=== PATIENT | female | born 1980 | race Hispanic/Latino ===

== ENCOUNTER 2022-02-01 09:00 | Inpatient (IN) | payer BC ==
[~2022-02-01] VITALS: Ht 152.4 cm; Wt 104.0 kg
[2022-02-01 11:20] LABS: BASOPHILS % (AUTO) 0.8 % (0.0-5.0); EOSINOPHILS % (AUTO) 1.4 % (0.0-8.0); HEMATOCRIT 37.8 % (36-48); LYMPHOCYTES % (AUTO) 24.6 % (21.0-51.0); MEAN CORPUSCULAR HEMOGLOBIN 23.2 pg (27.0-33.0); MEAN CORPUSCULAR HGB CONC 30.4 g/dL (32.0-36.0); MEAN CORPUSCULAR VOLUME 76.4 fL (79-99); NEUTROPHILS % (AUTO) 63.9 % (40.0-77.0); PLATELET COUNT (AUTO) 351 K/uL (130-400); RED BLOOD CELL COUNT(AUTO) 4.95 MIL/uL (4.00-5.50); RED CELL DISTRIBUTION WIDTH 16.5 % (11.0-15.5); WHITE BLOOD COUNT (AUTO) 7.2 K/uL (4.8-10.8)
[2022-02-01 11:27] LABS: CREATININE 0.6 mg/dL (0.5-1.5); POTASSIUM 3.5 mmol/L (3.5-5.1)
[2022-02-05 09:07] VITALS: BP 166/89
[2022-02-05] MEDS ORDERED: ALPR0.255 PO (10:19)
[2022-02-06] VITALS (31 sets, daily range): BP systolic 145–181; BP diastolic 74–111
[2022-02-06] MEDS ORDERED: CEFAZOLIN SODIUM 1 GM VIAL ONE (07:18)
[2022-02-06] MEDS ORDERED: LIDOCAINE PF 100MG/5ML (2%) SYRINGE 5ML ONE (07:27)
[2022-02-06] MEDS ORDERED: MIDAZOLAM HCL 1 MG/ML 2ML VIAL ONE ×2 (07:28→07:44)
[2022-02-06] MEDS ORDERED: ROCURONIUM 10MG/1ML SYR 10 MG/ML ML ONE (07:28)
[2022-02-06] MEDS ORDERED: FENTANYL CITRATE PF 50 MCG/1 ML 5ML AMP IV ONE (07:28)
[2022-02-06] MEDS ORDERED: PROPOFOL 10 MG/ML 20ML VIAL IV ONE ×2 (07:28→08:29)
[2022-02-06] MEDS ORDERED: MAGNESIUM SULFATE 1 GM/2 ML VIAL ONE (07:39)
[2022-02-06] MEDS ORDERED: KETAMINE 50MG/ML SYRINGE 50 MG/ML DISP.SYRIN IV ONE (07:39)
[2022-02-06] MEDS ORDERED: DEXMEDETOMIDINE HCL 200 MCG/2 ML VIAL IV ONE (07:39)
[2022-02-06] MEDS ORDERED: ONDANSETRON 4MG INJ ONE (07:46)
[2022-02-06] MEDS ORDERED: ACETAMINOPHEN 500 MG TABLET ONE (07:54)
[2022-02-06] MEDS ORDERED: LACTATED RINGERS 1000ML 1,000 ML IV SCH (08:00)
[2022-02-06] MEDS ORDERED: CEFAZOLIN SODIUM 3 GM in DEXTROSE 5%-WATER 100 ML IVP SCH (08:00)
[2022-02-06] MEDS ORDERED: DEXAMETHASONE SOD PHOSPHATE 10MG/ML 1ML VIAL ONE (08:28)
[2022-02-06] MEDS ORDERED: GLYCOPYRROLATE 1 MG/5 ML SYRINGE ONE (10:06)
[2022-02-06] MEDS ORDERED: NEOSTIGMINE 5MG/5ML SYR IV ONE (10:06)
[2022-02-06] MEDS ORDERED: MEPERIDINE-PF 25 MG/ML SYG ONE ×3 (10:14→11:00)
[2022-02-06] MEDS ORDERED: MEPERIDINE-PF 75 MG/ML SYG IM PRN (11:00)
[2022-02-06] MEDS ORDERED: BISACODYL 10 MG SUPP.RECT RC PRN (11:00)
[2022-02-06] MEDS ORDERED: PROMETHAZINE HCL 25 MG/ML 1ML AMPULE IM PRN (11:00)
[2022-02-06] MEDS ORDERED: ACETAMINOPHEN WITH CODEINE 1 TAB TAB PO PRN (11:00)
[2022-02-06] MEDS ORDERED: ENALAPRILAT DIHYDRATE 1.25MG/ML 1ML VIAL IV ONE (11:09)
[2022-02-06] MEDS: HYDRALAZINE 20MG/ML VIAL IV SCH ×2 (12:31→17:01)
[2022-02-06] MEDS ORDERED: MEPERIDINE-PF 50 MG/ML SYG IM SCH (13:00)
[2022-02-06] MEDS ORDERED: MEPERIDINE-PF 50 MG/ML SYG ONE (13:05)
[2022-02-06] MEDS: PROMETHAZINE HCL 25 MG/ML 1ML AMPULE IM PRN ×2 (13:08→16:04)
[2022-02-06] MEDS: DEXTROSE 5 %-0.45 % NACL 1,000 ML IV PRN (15:17)
[2022-02-06] MEDS ORDERED: LABETALOL 20MG SYG IV SCH (17:30)
[2022-02-06] MEDS ORDERED: LABETALOL HCL 100 MG TABLET PO SCH ×2 (17:30→21:00)
[2022-02-06] MEDS ORDERED: LABETALOL 20MG VIAL IV ONE (17:34)
[2022-02-06] MEDS: LIDOCAINE 5% TOPICAL PATCH TP SCH (18:39)
[2022-02-06] MEDS: HYDROMORPHONE 1 MG INJ IVP PRN (18:39)
[2022-02-06] MEDS ORDERED: METOPROLOL TARTRATE 1 MG/ML 5ML VIAL IV PRN (19:00)
[2022-02-07] MEDS: DEXTROSE 5 %-0.45 % NACL 1,000 ML IV PRN (00:11)
[2022-02-07] MEDS: HYDROMORPHONE 1 MG INJ IVP PRN (00:12)
[2022-02-07 04:28] VITALS: BP 143/66
[2022-02-07 06:29] LABS: HEMATOCRIT 35.5 % (36-48); MEAN CORPUSCULAR HEMOGLOBIN 22.7 pg (27.0-33.0); MEAN CORPUSCULAR HGB CONC 30.4 g/dL (32.0-36.0); MEAN CORPUSCULAR VOLUME 74.7 fL (79-99); RED BLOOD CELL COUNT(AUTO) 4.75 MIL/uL (4.00-5.50); RED CELL DISTRIBUTION WIDTH 16.7 % (11.0-15.5); WHITE BLOOD COUNT (AUTO) 12.2 K/uL (4.8-10.8)
[2022-02-07 07:35] VITALS: BP 135/75
[2022-02-07] MEDS: DOCUSATE SODIUM 100 MG CAP PO PRN ×2 (08:25→20:12)
[2022-02-07] MEDS: SIMETHICONE 80 MG TAB.CHEW PO PRN ×2 (08:25→20:12)
[2022-02-07] MEDS: LIDOCAINE 5% TOPICAL PATCH TP SCH (08:26)
[2022-02-07] MEDS: IBUPROFEN 800 MG TAB PO SCH ×2 (08:26→17:13)
[2022-02-07] MEDS: HYDROCODONE/ACETAMINOPHEN 5/325 MG TAB PO PRN ×3 (09:20→21:39)
[2022-02-07] MEDS ORDERED: LABETALOL 20MG VIAL IV PRN (10:00)
[2022-02-07] MEDS ORDERED: LABETALOL 20MG SYG IV PRN (10:30)
[2022-02-07] MEDS: AMLODIPINE 5 MG TAB PO SCH (10:32)
[2022-02-07] MEDS ORDERED: IBUPROFEN 800 MG TAB PO SCH (11:00)
[2022-02-07 11:10] VITALS: BP 142/67
[2022-02-07] MEDS ORDERED: ALPRAZOLAM 0.25 MG TABLET PO SCH (12:00)
[2022-02-07 16:28] VITALS: BP 135/80
[2022-02-07] MEDS ORDERED: ACETAMINOPHEN WITH CODEINE 1 TAB TAB PO PRN (19:30)
[2022-02-07] MEDS ORDERED: ALPRAZOLAM 0.25 MG TABLET PO PRN (20:00)
[2022-02-07 20:36] VITALS: BP 137/76
[2022-02-07 23:05] VITALS: BP 131/78
[2022-02-07] MEDS ORDERED: HYDROMORPHONE 1 MG INJ IVP PRN (23:30)
[2022-02-07] MEDS ORDERED: HYDROCODONE/ACETAMINOPHEN 5/325 MG TAB PO PRN (23:30)
[2022-02-08 03:40] VITALS: BP 140/86
[2022-02-08] MEDS: HYDROCODONE/ACETAMINOPHEN 5/325 MG TAB PO PRN ×2 (03:55→09:47)
[2022-02-08 07:40] VITALS: BP 149/87
[2022-02-08] MEDS: DOCUSATE SODIUM 100 MG CAP PO PRN (08:57)
[2022-02-08] MEDS: SIMETHICONE 80 MG TAB.CHEW PO PRN (08:57)
[2022-02-08] MEDS: LIDOCAINE 5% TOPICAL PATCH TP SCH (08:58)
[2022-02-08] MEDS: IBUPROFEN 800 MG TAB PO SCH (08:58)
[2022-02-08] MEDS: AMLODIPINE 5 MG TAB PO SCH (08:58)
[2022-02-08 11:09] VITALS: BP 139/84
== END 2022-02-08 12:20 | disposition home or self-care (01) | DRG 742 ==
LOC: EDSTATUS 09:00 → DAHIP 02-06 06:46 → WSH 02-06 11:40
PROVIDERS: ADMIT Specialist; ATTEND Specialist
PROC: 0UB70ZZ Excision of Bilateral Fallopian Tubes, Open Approach (ICD-10-PCS; 2022-02-06)
PROC: 0UB20ZZ Excision of Bilateral Ovaries, Open Approach (ICD-10-PCS; 2022-02-06)
PROC: 0UT90ZZ Resection of Uterus, Open Approach (ICD-10-PCS; principal; 2022-02-06 08:00)
DX: D25.9 Leiomyoma of uterus, unspecified (principal); Z68.41 Body mass index [BMI] 40.0-44.9, adult; I10 Essential (primary) hypertension; N94.6 Dysmenorrhea, unspecified; N85.00 Endometrial hyperplasia, unspecified; Z20.822 Contact with and (suspected) exposure to COVID-19; E66.9 Obesity, unspecified
CPT/HCPCS: 36415; 80048; 82550; 83874; 84484; 84703; 85025; 85027; 86850; 86900; 86901; 87635; 93005; G0378; J0360; J0690; J1100; J1170; J2001; J2175; J2250; J2405; J2550; J2704; J2710; J3010; J3475; J3490; J7060; J7120